=== PATIENT | female | born 1995 | race Caucasian/White ===

== ENCOUNTER 2018-05-26 19:21 | Emergency (ER) | payer OTHER, SELFPAY ==
[2018-05-26 19:21] VITALS: BP 115/77; PULSE 96; RESP 16; TEMP 36.4; O2SAT 100; BMI 24.1
--- NOTE | 2018-05-26 19:35 | ED.VISSUMM ---
- ER Visit Summary Date of Service: 05/26/18 Chief Complaint: Abdominal pain History of Present Illness: The patient is a 22 F presenting with abdominal pain. This has been ongoing for the past 4 days. Pain is intermittent. It is worse with eating. She has nausea with no vomiting. She has had mild diarrhea, denies urinary complaints. She denies vaginal bleeding. She is currently 5 weeks . . Denies chest pain or shortness of breath. Denies other complaints. Physical Examination: Vitals are stable. Patient is afebrile. Alert no acute distress. HEENT exam is unremarkable. Neck is supple. Lungs are clear and equal bilaterally. Heart is regular rate and rhythm. Abdomen is soft mild epigastric tenderness with no rebound or guarding. Extremities are unremarkable. Skin is warm and dry. Remainder of exam is unremarkable. Emergency Department Course and Treatment: Patient was given IV fluids, Zofran. CBC, chemistries unremarkable. Liver lipase are normal. Patient is given a GI cocktail with improvement. She is advised to follow-up with her [employer]. Advised return to ED for worsening complaints. Disposition: Discharge home Impression: Epigastric pain This note was generated with [employer] dictation software. It may contain incorrect words, spelling, and punctuation that were not noted in review of the chart prior to signing ED Disposition - Plan for ED Patient: Chief Complaint: Abd Pain Instructions: ED Abdominal Pain Unkn Cause Referrals: Clarisse Hyde MD [STAFF PHYSICIAN] -
[2018-05-26] MEDS: Ondansetron 4 MG/2 ML Vial IV (20:00)
[2018-05-26] MEDS: 0.9% Normal Saline 1,000 ML 1000 ML IV (20:00)
[2018-05-26 20:03] LABS: Absolute Lymphocyte Count 1.84 X10^3/ul (0.83-4.51); Absolute Neutrophil Count 6.3 X10^3/uL (2.0-7.7); Basophil# 0.02 X10^3/uL; Basophil% 0.2 % (0-1); Eosinophil# 0.11 X10^3/uL; Eosinophils% 1.2 % (0-5); Hematocrit 39.3 % (37-47); Hemoglobin 13.2 g/dl (12.0-15.0); Lymphocyte # 1.84 X10^3/ul (4.0); Lymphocyte % 20.6 % (19-41); Mean Corp Hgb Conc 33.6 g/gl (32-36); Mean Corpuscular Hgb 29.1 pg (27.0-32.0); Mean Corpuscular Volume 86.8 fL (81-99); Monocyte# 0.63 X10^3/uL; Monocyte% 7.1 % (0-10); Neutrophil # 6.32 X10^3/uL (2.7-7.7); Neutrophil % 70.8 % (47-70); POSITIVE COUNT NO; POSITIVE DIFFERENTIAL NO; POSITIVE MORPHOLOGY NO; Platelet Count 196 K/mm3 (150-450); RBC Distribution Width CV 12.6 % (11.6-14.6); RBC Distribution Width SD 40.2 fl (35.1-43.9); Red Blood Count 4.53 M/mm3 (4.2-5.4); White Blood Count 8.9 K/mm3 (4.4-11.0)
[2018-05-26 20:17] LABS: AST(SGOT) 12 U/L (15-37); Alanine Aminotransfer ALT/SGPT 20 U/L (13-56); Albumin, Serum 3.8 g/dL (3.2-5.0); Alkaline Phosphatase 69 U/L (45-117); Anion Gap 8 (5-15); BUN 5 mg/dL (7-18); BUN/Creat Ratio 10.7 RATIO (10-20); Bilirubin, Direct 0.09 mg/dL (0.00-0.30); Calcium,Total 8.6 mg/dL (8.5-10.1); Chloride 106 mmol/L (98-107); Creatinine, Serum 0.47 mg/dL (0.55-1.02); EST Glomerular Filtration Rate 177 mL/min (>60); Est Glom Filt Rate - Afr Amer 214 mL/min (>60); Estimated Creatinine Clearance 156.63 ml/min; Globulin 3.7 g/dL (2.2-4.2); Glucose 80 mg/dL (74-106); Lipase 86 U/L (73-393); Potassium 3.6 mmol/L (3.5-5.1); Protein, Total 7.5 g/dL (6.4-8.2); Sodium Level 137 mmol/L (136-145)
[2018-05-26] MEDS: Mag Hydrox/Al Hydrox/Simeth 30 ML UDC PO (20:43)
--- NOTE | 2018-05-26 21:45 | ED.DEP ---
ED Disposition - Plan for ED Patient: Chief Complaint: Abd Pain Instructions: ED Abdominal Pain Unkn Cause Referrals: Clarisse Hyde MD [STAFF PHYSICIAN] -
[2018-05-26 21:56] VITALS: BP 112/69; PULSE 81; RESP 16; O2SAT 99
== END 2018-05-26 21:57 | disposition home or self-care (01) ==
PROVIDERS: Emergency Provider Emergency Medicine
DX: O26.891 Other specified pregnancy related conditions, first trimester (principal); R10.13 Epigastric pain; Z3A.01 Less than 8 weeks gestation of pregnancy
CPT/HCPCS: 80048; 80076; 83690; 85025; 96361; 96374; 99284; J7030; J2405

== ENCOUNTER 2018-05-30 14:03 | Emergency (ER) | payer OTHER, SELFPAY ==
[2018-05-30 14:04] VITALS: BP 117/71; PULSE 106; RESP 16; TEMP 36.1; O2SAT 100; BMI 23.7
[2018-05-30 14:44] LABS: Absolute Lymphocyte Count 1.45 X10^3/ul (0.83-4.51); Absolute Neutrophil Count 7.2 X10^3/uL (2.0-7.7); Basophil# 0.02 X10^3/uL; Basophil% 0.2 % (0-1); Eosinophil# 0.06 X10^3/uL; Eosinophils% 0.6 % (0-5); Hematocrit 43.2 % (37-47); Hemoglobin 14.6 g/dl (12.0-15.0); Lymphocyte # 1.45 X10^3/ul (4.0); Lymphocyte % 15.4 % (19-41); Mean Corp Hgb Conc 33.8 g/gl (32-36); Mean Corpuscular Hgb 29.5 pg (27.0-32.0); Mean Corpuscular Volume 87.3 fL (81-99); Mean Platelet Vol. 10.4 fl (6.2-12.0); Monocyte# 0.64 X10^3/uL; Monocyte% 6.8 % (0-10); Neutrophil % 76.8 % (47-70); POSITIVE COUNT NO; POSITIVE DIFFERENTIAL NO; POSITIVE MORPHOLOGY NO; Platelet Count 217 K/mm3 (150-450); RBC Distribution Width CV 12.6 % (11.6-14.6); RBC Distribution Width SD 40.6 fl (35.1-43.9); Red Blood Count 4.95 M/mm3 (4.2-5.4); White Blood Count 9.4 K/mm3 (4.4-11.0)
[2018-05-30 15:06] LABS: Anion Gap 8 (5-15); BUN 7 mg/dL (7-18); BUN/Creat Ratio 11.1 RATIO (10-20); Chloride 103 mmol/L (98-107); Creatinine, Serum 0.63 mg/dL (0.55-1.02); EST Glomerular Filtration Rate 126 mL/min (>60); Est Glom Filt Rate - Afr Amer 152 mL/min (>60); Estimated Creatinine Clearance 116.85 ml/min; Glucose 76 mg/dL (74-106); Sodium Level 135 mmol/L (136-145)
[2018-05-30 15:07] LABS: Red Blood Cells-Urine 0 SEEN /hpf (0-5)
[2018-05-30 15:12] LABS: Color, Urine Yellow (Yellow); Glucose, Dipstick Normal (Normal); Leukocyte Esterase-Dipstick 25 /ul (Negative); Nitrite-Dipstick Negative (Negative); Occult Blood-Urine Negative /ul (Negative); Protein-Dipstick 15 mg/dl (Negative); Urine Bilirubin Dipstick Negative (Negative); Urine Clarity Sl. Cloudy (Clear); Urine Urobilinogen Normal (Normal)
[2018-05-30 15:14] LABS: Ketone-Dipstick 150 mg/dl (Negative)
[2018-05-30 15:17] LABS: Bacteria 1+ /hpf (None Seen); Mucous, Urine 1+ /hpf (<or=2+); Squamous Epithelial Cells - UA 0-5 SEEN /hpf (5-10); White Blood Cells 0-5 SEEN /hpf (0-5)
--- NOTE | 2018-05-30 15:52 | ED.RN ---
POS PREG CALLED FROM THE LAB. DR SALAS AWARE
[2018-05-30 15:53] LABS: Pregnancy, Serum, hCG Quali. POSITIVE Negative (0-9 Nonpreg)
[2018-05-30 16:17] VITALS: BP 96/70; PULSE 90; RESP 14; O2SAT 100
--- NOTE | 2018-05-30 16:19 | ED.VISSUMM ---
- ER Visit Summary Date of Service: 05/30/18 Chief Complaint: Abdominal pain History of Present Illness: The patient is a 22 F who presents with abdominal pain that has been getting worse over the past few weeks. Patient states the pain is worse over the epigastric area. Patient states the pain is aching and cramping. Patient admits to some nausea and one episode of vomiting. She states the emesis was stomach contents. Patient states she has been having some diarrhea as well. Patient denies any melena or hematochezia. Patient denies any dysuria hematuria. Patient states she is approximately 6 weeks and her last menstrual period was at the beginning of April. Physical Examination: Vital signs are stable. Patient is afebrile. Patient is in no acute distress. Oral mucosa is pink and moist. Neck is supple. Trachea is midline. There is no JVD noted. Heart was regular rate and rhythm. Lungs are clear and equal bilateral. Abdomen is soft. Bowel sounds are normal. There is mild diffuse tenderness. There is no guarding noted. Skin is warm dry. Cranial nerves II through XII are intact. There are no focal motor or sensory deficits noted. The remaining physical exam is within normal limits. Test Results: CBC, metabolic profile, and urinalysis were obtained and were all normal. HCG was positive. Quantitative hCG and pelvic ultrasound were ordered. Emergency Department Course and Treatment: Patient was given IV fluids. Patient was given Zofran. Patient was turned over to the oncoming physician pending ultrasound results. Patient was given a prescription for Zofran. Disposition: [] Impression: 1. Abdominal pain 2. This note was generated with [employer] dictation software. It may contain incorrect words, spelling, and punctuation that were not noted in review of the chart prior to signing <Vitaly Cramer - Last Filed: 05/30/18 16:46> - ER Visit Summary Ultrasound returned showing single live intrauterine at 7 weeks and 1 day with good heart tones. Small subchorionic hemorrhage which I discussed with the patient. She is having no symptoms of a threatened at this time she states that the epigastric discomfort is worse within minutes of eating. She has had no hematemesis or melena or bright red blood per rectum. It stays epigastric, it does not radiate to her back or her right upper quadrant. I do not think she has biliary colic. I recommend taking an H2 kash twice daily until she follows up, she is given a prescription for ranitidine in addition to the Zofran that was already written. She is comfortable with this plan. This note was generated with [employer] dictation software. It may contain incorrect words, spelling, and punctuation that were not noted in review of the chart prior to signing <Stephon Hargrove - Last Filed: 05/30/18 18:01> ED Disposition <Vitaly Cramer - Last Filed: 05/30/18 16:46> <Stephon Hargrove - Last Filed: 05/30/18 18:01> - Plan for ED Patient: Disposition: Home or Assisted Living Chief Complaint: Abd Pain Instructions: ED Abdominal Pain Unkn Cause Prescriptions: Ondansetron [Zofran Odt] 4 mg PO Q8H PRN PRN #10 tab PRN Reason: Nausea Ranitidine [Zantac] 150 mg PO BID #60 tab Referrals: Care Physician,No Primary [Primary Care Provider] - Clarisse Hyde MD [STAFF PHYSICIAN] - 5-7 Days
--- NOTE | 2018-05-30 16:21 | US_ITS ---
STUDY: FIRST TRIMESTER OBSTETRICAL ULTRASOUND REASON FOR EXAM: Female, 22 years old. Abdominal pain after eating with nausea and vomiting. . LMP: 04/15/2018 TECHNIQUE: Transvaginal PRIOR ULTRASOUND: None. FINDINGS: Single live intrauterine gestation, cardiac rate 117 bpm. Mean sac diameter 2.1 cm correlating with 7 week 1 day gestation. Yolk sac 3.7 mm. Saticoy-rump length 4 mm, correlating with 6 week 1 day gestation. AUA 6 week 5 day, NITHYA (AUA) 01/18/2019. GA (LMP) 6 week 3 day. Uterus measures 9.3 x 6.7 x 4.4 cm, normal myometrial echotexture, closed cervix. The right ovary measures 29 x 15 x 13 mm, normal echotexture and flow, no suspicious features of the right ovary or right adnexa. The left ovary measures 41 x 34 x 32 mm and contains a simple cyst measuring 24 x 22 x 25 mm, normal vascular flow, no suspicious adnexal lesion. No adnexal or cul-de-sac free fluid. Heterogeneous anechoic focus adjacent to the gestational sac measuring 8 x 6 x 4 mm, consistent with small subchorionic hemorrhage. US/Transvaginal w/Preg US IMPRESSION: Small subchorionic hemorrhage. Single live intrauterine gestation. Left ovarian simple appearing cyst with a maximum dimension of 25 mm, most likely representing a corpus luteal cyst of . Measurements on today's study are concordant with expected dates based on last menses within 2 days. Electronically Signed: Greg Hall MD at 17:20 EST Tel , Service support ,
[2018-05-30] MEDS: Ondansetron 4 MG/2 ML Vial IV (16:31)
[2018-05-30] MEDS: 0.9% Normal Saline 1,000 ML 1000 ML IV (16:31)
[2018-05-30 18:11] VITALS: BP 103/71; PULSE 90; RESP 16; O2SAT 100
--- OUTSIDE RECORDS SUMMARY | 2018-08-04 14:58 | XMS RPT_ITS ---
:1995 Author Organization [facility] Care Team Providers Name Role Phone Annamaria Sow Attending Unavailable Primay Care Physicia, No Primary Care Unavailable Primay Care Physicia, No Primary Care Unavailable Vitaly Cramer Attending Unavailable Clarisse Hyde Attending Unavailable PROBLEMS PROBLEMS No Problem Records FoundPROCEDURES PROCEDURES No Procedure Records FoundRESULTS RESULTS EMERGENCY DEPARTMENT Observed: 06/06/2018 Status: F Source: [place] SUMMARY 12:47 AM [facility] REPOSIT[facility] Medical Records Department [address] [place] [address] Emergency Department Summary 05/30/18 1619 MR#: [id number] Acct: [id number] Name: MELVA MARTINS Rep #: [id number] : 1995 22 From: Vitaly Cramer DO PCP: Care Physician, No Primary Status: DEP ER - ER Visit Summary Date of Service: 05/30/18 Chief Complaint: Abdominal pain History of Present Illness: The patient is a 22 F who presents with abdominal pain that has been getting worse over the past few weeks. Patient states the pain is worse over the epigastric area. Patient states the pain is aching and cramping. Patient admits to some nausea and one episode of vomiting. She states the emesis was stomach contents. Patient states she has been having some diarrhea as well. Patient denies any melena or hematochezia. Patient denies any dysuria hematuria. Patient states she is approximately 6 weeks and her last menstrual period was at the beginning of April. Physical Examination: Vital signs are stable. Patient is afebrile. Patient is in no acute distress. Oral mucosa is pink and moist. Neck is supple. Trachea is midline. There is no JVD noted. Heart was regular rate and rhythm. Lungs are clear and equal bilateral. Abdomen is soft. Bowel sounds are normal. There is mild diffuse tenderness. There is no guarding noted. Skin is warm dry. Cranial nerves II through XII are intact. There are no focal motor or sensory deficits noted. The remaining physical exam is within normal limits. Test Results: CBC, metabolic profile, and urinalysis were obtained and were all normal. HCG was positive. Quantitative hCG and pelvic ultrasound were ordered. Emergency Department Course and Treatment: Patient was given IV fluids. Patient was given Zofran. Patient was turned over to the oncoming physician pending ultrasound results. Patient was given a prescription for Zofran. Disposition: [] Impression: 1. Abdominal pain 2. This note was generated with ACE*COMMation software. It may contain incorrect words, spelling, and punctuation that were not noted in review of the chart prior to signing <Vitaly Cramer - Last Filed: 05/30/18 16:46> - ER Visit Summary Ultrasound returned showing single live intrauterine at 7 weeks and 1 day with good heart tones. Small subchorionic hemorrhage which I discussed with the patient. She is having no symptoms of a threatened at this time she states that the epigastric discomfort is worse within minutes of eating. She has had no hematemesis or melena or bright red blood per rectum. It stays epigastric, it does not radiate to her back or her right upper quadrant. I do not think she has biliary colic. I recommend taking an H2 kash twice daily until she follows up, she is given a prescription for ranitidine in addition to the Zofran that was already written. She is comfortable with this plan. This note was generated with HELM [employer]s software. It may contain incorrect words, spelling, and punctuation that were not noted in review of the chart prior to signing <Stephon Hargrove - Last Filed: 05/30/18 18:01> ED Disposition <Vitaly Cramer - Last Filed: 05/30/18 16:46> <Stephon Hargrove - Last Filed: 05/30/18 18:01> - Plan for ED Patient: Disposition: Home or Assisted Living Chief Complaint: Abd Pain Instructions: ED Abdominal Pain Unkn Cause Prescriptions: Ondansetron [Zofran Odt] 4 mg PO Q8H PRN PRN #10 tab PRN Reason: Nausea Ranitidine [Zantac] 150 mg PO BID #60 tab Referrals: Care Physician,No Primary [Primary Care Provider] - Clarisse Hyde MD [STAFF PHYSICIAN] - 5-7 Days What to do if you have Problems For any increased pain, shortness of breath, bleeding, nausea or vomiting, chest pain, or any unexpected problems, contact your Primary Care Provider. Call [facility] ([phone]) or report to the closest Emergency Room. Call 911 if necessary. 06/06/18 0047 <Electronically signed by Vitaly Cramer DO> Date Vitaly Cramer DO 05/30/18 180<Electronically signed by Stephon Hargrove MD> Cosigner Signature (If Indicated): Date Stephon Hargrove MD CC: No Primary Care Physician TRANSVAGINAL W/PREG US Observed: 05/30/2018 Status: F Source: [place] 4:22 PM [facility] REPOSIT[facility] Imaging Services [address] [place] [address] Transvaginal w/Preg US MR#: [id number] Acct: [id number] Name: MELVA MARTINS Rep #: [id number] : 1995 F 22 From: Greg Hall MD PCP: Care Physician, No Primary Status: REG ER Study: Transvaginal w/Preg US Date of Exam: 05/30/18 Exam# [id number] Ordering Dr: Vitaly Cramer DO STUDY: FIRST TRIMESTER OBSTETRICAL ULTRASOUND REASON FOR EXAM: Female, 22 years old. Abdominal pain after eating with nausea and vomiting. . LMP: 04/15/2018 TECHNIQUE: Transvaginal PRIOR ULTRASOUND: None. FINDINGS: Single live intrauterine gestation, cardiac rate 117 bpm. Mean sac diameter 2.1 cm correlating with 7 week 1 day gestation. Yolk sac 3.7 mm. [place] [employer]-rump length 4 mm, correlating with 6 week 1 day gestation. AUA 6 week 5 day, NITHYA (AUA) 01/18/2019. GA (LMP) 6 week 3 day. Uterus measures 9.3 x 6.7 x 4.4 cm, normal myometrial echotexture, closed cervix. The right ovary measures 29 x 15 x 13 mm, normal echotexture and flow, no suspicious features of the right ovary or right adnexa. The left ovary measures 41 x 34 x 32 mm and contains a simple cyst measuring 24 x 22 x 25 mm, normal vascular flow, no suspicious adnexal lesion. No adnexal or cul-de-sac free fluid. Heterogeneous anechoic focus adjacent to the gestational sac measuring 8 x 6 x 4 mm, consistent with small subchorionic hemorrhage. US/Transvaginal w/Preg US IMPRESSION: Small subchorionic hemorrhage. Single live intrauterine gestation. Left ovarian simple appearing cyst with a maximum dimension of 25 mm, most likely representing a corpus luteal cyst of . Measurements on today's study are concordant with expected dates based on last menses within 2 days. Electronically Signed: Greg Hall MD at 17:20 EST Tel , Service support , CC: No Primary Care Physician; Vitaly Cramer DO Spool Sorter: Signed URINALYSIS, COMPLETE Collected: 05/30/2018 Status: F Source: [place] 3:03 PM [facility] REPOSITORY Order Comment: How was Urine Obtained? CLEAN CATCH TYPE CODE TESTS RESULT OUT OF RANGE REFERENCE UNITS LAB L400.3000 Yellow COLOR Normal Yellow LAB L400.3050 Clear Normal CLARITY Sl. Cloudy LAB L400.3200 Normal mg/dl Normal GLUCOSE, UR Normal LAB L400.3300 Negative mg/dL Normal BILIRUBIN URINE Negative LAB L400.3400 Negative mg/dl High KETONE UR 150 Result Comment: CRITICAL VALUE *H CRITICAL VALUE VERIFIED. CALLED TO KAREN SPICER 05/30/18 1514 Abilio Lima. RESULTS READ BACK BY SAME. LAB L400.3465 1.002-1.030 Normal SP.GR. DIPSTX 1.020 LAB L400.3550 5.0 - 8.0 pH Normal UR 6.0 LAB L400.3600 Negative mg/dl High 15 PROT DIPSTX LAB L400.3700 Normal mg/dl Normal UROBILI Normal LAB L400.3750 Negative Normal NITRITE UR Negative LAB L400.3780 Negative /ul Normal OCCULT Negative BLOOD-UR LAB L400.3800 Negative /ul High 25 LEUK ESTERASE LAB L400.4050 0-5 /hpf Normal WBC 0-5 SEEN LAB L400.4100 0-5 /hpf 0 Normal RBC-UA SEEN LAB L400.4150 5-10 /hpf Normal SQUAM EPI 0-5 SEEN LAB L400.4300 None Seen /hpf 1+ Normal BACTERIA LAB L400.4350 <or=2+ /hpf 1+ Normal MUCUS, URINE Performed By: #### L400.0001 #### [facility] [address] [place], [address] CBC W/DIFF, AUTOMATED Collected: 05/30/2018 Status: F Source: [place] 2:30 PM [facility] REPOS[facility] TYPE CODE TESTS RESULT OUT OF RANGE REFERENCE UNITS LAB L100.1000 4.4-11.0 K/mm3 Normal WBC 9.4 LAB L100.1200 4.2-5.4 M/mm3 Normal RBC 4.95 LAB L100.1300 12.0-15.0 g/dl Normal HGB 14.6 LAB L100.1400 37-47 % Normal HCT 43.2 LAB L100.1500 81-99 fL Normal MCV 87.3 LAB L100.1600 27.0-32.0 pg Normal MCH 29.5 LAB L100.1700 32-36 g/gl Normal MCHC 33.8 LAB L100.1810 11.6-14.6 % Normal RDW CV 12.6 LAB L100.1820 35.1-43.9 fl Normal RDW SD 40.6 LAB L100.1900 150-450 K/mm3 Normal PLT 217 LAB L100.2000 6.2-12.0 fl Normal MPV 10.4 LAB L100.2100 47-70 % High NEUT% 76.8 LAB L100.2200 19-41 % Low LY% 15.4 LAB L100.2300 0-10 % Normal MONO% 6.8 LAB L100.2400 0-5 % Normal EO% 0.6 LAB L100.2500 0-1 % Normal BASO% 0.2 LAB L100.2550 0.0-0.9 % Normal IM GRAN % 0.200 Result Comment: IG% - Immature Granulocytes (promyelocytes, myelocytes and metamyelocytes) > 1% indicates that a LEFT SHIFT is Present. LAB L100.2620 2.0-7.7 X10 3/uL Normal Absolute Neut 7.2 LAB L100.2720 0.83-4.51 X10 3/ul Normal Absolute Lymph 1.45 Performed By: #### L100.0100, L700.6800 #### [facility] [address] [place], [place], [id number] ,SERUM,HCG QUALI. Collected: Status: F Source: [place] 05/30/2018 2:30 PM [facility] RE[facility] TYPE CODE TESTS RESULT OUT OF REFERENCE UNITS RANGE LAB L700.7000 0-9 Nonpreg Negative High HCGSQUAL POSITIVE Result Comment: TEST is *POSITIVE* LAB L700.6700 =>Qualitative mIU/mL Normal HCG Qual triggr 59331 Performed By: #### L100.0100, L700.6800 #### [facility] [address] [place], [place], [id number] BASIC METABOLIC Collected: 05/30/2018 Status: F Source: [place] PROFILE (BMP) 2:30 PM [facility] REPOS[facility] TYPE CODE TESTS RESULT OUT OF RANGE REFERENCE UNITS LAB L501.0100 74-106 mg/dL Normal GLU 76 Result Comment: Please note revised GLUCOSE reference range effective 2017. LAB L501.1000 7-18 mg/dL Normal BUN 7 LAB L501.1100 0.55-1.02 mg/dL Normal CREAT,SERUM 0.63 Result Comment: The validity of the calculated GFR AND GFRAA in patients over 70 years has not been determined. Clinical correlation is essential. LAB L501.1110 >60 mL/min Normal EST GFR 126 Result Comment: Non- GFR Calc LAB L501.1115 >60 mL/min Normal EST GFR - AA 152 Result Comment: GFR Calc LAB L501.1255 ml/min Normal Estimated CRCL 116.85 LAB L501.1300 10-20 RATIO BUN/CRE Normal 11.1 LAB L501.2200 8.5-10 mg/dL .1 CA Normal 9.0 LAB L501.5300 136-14 mmol/L Low 5 NA 135 LAB L501.5600 3.5-5. mmol/L 1 K Normal 4.0 LAB L501.5900 98-107 mmol/L CL Normal 103 LAB L501.6100 21.0-3 mmol/L 2.0 CO2 Normal 24.0 LAB L501.6200 5-15 GAP Normal 8 Performed By: #### L500.2500 #### [facility] [address] [place], [address] HCG TITER QUANT., Collected: 05/30/2018 Status: F Source: [place] SERUM 2:30 PM [facility] REPOS[facility] TYPE CODE TESTS RESULT OUT OF RANGE REFERENCE UNITS LAB L700.8000 <9 non-preg mIU/mL High HCG 35151 QUANT. Performed By: #### L700.8000 #### [facility] [address] [place], [address] EMERGENCY DEPARTMENT Observed: 05/26/2018 Status: F Source: [place] SUMMARY 9:48 PM [facility] REPOSITORY [facility] Medical Records Department [address] [place] [address] Emergency Department Summary 05/26/18 1935 MR#: [id number] Acct: [id number] Name: MELVA MARTINS Rep #: [id number] : 1995 22 From: Annamaria Sow MD PCP: Care Physician, No Primary Status: REG ER - ER Visit Summary Date of Service: 05/26/18 Chief Complaint: Abdominal pain History of Present Illness: The patient is a 22 F presenting with abdominal pain. This has been ongoing for the past 4 days. Pain is intermittent. It is worse with eating. She has nausea with no vomiting. She has had mild diarrhea, denies urinary complaints. She denies vaginal bleeding. She is currently 5 weeks . . Denies chest pain or shortness of breath. Denies other complaints. Physical Examination: Vitals are stable. Patient is afebrile. Alert no acute distress. HEENT exam is unremarkable. Neck is supple. Lungs are clear and equal bilaterally. Heart is regular rate and rhythm. Abdomen is soft mild epigastric tenderness with no rebound or guarding. Extremities are unremarkable. Skin is warm and dry. Remainder of exam is unremarkable. Emergency Department Course and Treatment: Patient was given IV fluids, Zofran. CBC, chemistries unremarkable. Liver lipase are normal. Patient is given a GI cocktail with improvement. She is advised to follow-up with her TELEVISION NEWS PRODUCER. Advised return to ED for worsening complaints. Disposition: Discharge home Impression: Epigastric pain This note was generated with Wakie/Budist dictation software. It may contain incorrect words, spelling, and punctuation that were not noted in review of the chart prior to signing ED Disposition - Plan for ED Patient: Chief Complaint: Abd Pain Instructions: ED Abdominal Pain Unkn Cause Referrals: Clarisse Hyde MD [STAFF PHYSICIAN] - What to do if you have Problems For any increased pain, shortness of breath, bleeding, nausea or vomiting, chest pain, or any unexpected problems, contact your Primary Care Provider. Call [employer] [facility] ([phone]) or report to the closest Emergency Room. Call 911 if necessary. 05/26/18 2148 <Electronically signed by Annamaria Sow MD> Date Annamaria Sow MD Cosigner Signature (If Indicated): Date CC: No Primary Care Physician DISCHARGE INSTRUCTION Observed: 05/26/2018 Status: F Source: [place] 9:45 PM [facility] RE[facility] Medical Records Department [address] [place] [address] Discharge Instruction 05/26/182144 MR#: [id number] Acct: [id number] Name: MELVA MARTINS Rep #: [id number] : 1995 22 From: Annamaria Sow MD PCP: Care Physician, No Primary Status: REG ER ED Disposition - Plan for ED Patient: Chief Complaint: Abd Pain Instructions: ED Abdominal Pain Unkn Cause Referrals: Clarisse Hyde MD [STAFF PHYSICIAN] - What to do if you have Problems For any increased pain, shortness of breath, bleeding, nausea or vomiting, chest pain, or any unexpected problems, contact your Primary Care Provider. Call [facility] ([phone]) or report to the closest Emergency Room. Call 911 if necessary. 05/26/182144 <Electronically signed by Annamaria Sow MD> Date Annamaria Sow MD Cosigner Signature (If Indicated): Date CC: No Primary Care Physician CBC W/DIFF, AUTOMATED Collected: 05/26/2018 Status: F Source: [place] 7:50 PM [facility] REPOS[facility] TYPE CODE TESTS RESULT OUT OF RANGE REFERENCE UNITS LAB L100.1000 4.4-11.0 K/mm3 Normal WBC 8.9 LAB L100.1200 4.2-5.4 M/mm3 Normal RBC 4.53 LAB L100.1300 12.0-15.0 g/dl Normal HGB 13.2 LAB L100.1400 37-47 % Normal HCT 39.3 LAB L100.1500 81-99 fL Normal MCV 86.8 LAB L100.1600 27.0-32.0 pg Normal MCH 29.1 LAB L100.1700 32-36 g/gl Normal MCHC 33.6 LAB L100.1810 11.6-14.6 % Normal RDW CV 12.6 LAB L100.1820 35.1-43.9 fl Normal RDW SD 40.2 LAB L100.1900 150-450 K/mm3 Normal PLT 196 LAB L100.2000 6.2-12.0 fl Normal MPV 10.0 LAB L100.2100 47-70 % High NEUT% 70.8 LAB L100.2200 19-41 % Normal LY% 20.6 LAB L100.2300 0-10 % Normal MONO% 7.1 LAB L100.2400 0-5 % Normal EO% 1.2 LAB L100.2500 0-1 % Normal BASO% 0.2 LAB L100.2550 0.0-0.9 % Normal IM GRAN % 0.100 Result Comment: IG% - Immature Granulocytes (promyelocytes, myelocytes and metamyelocytes) > 1% indicates that a LEFT SHIFT is Present. LAB L100.2620 2.0-7.7 X10 3/uL Normal Absolute Neut 6.3 LAB L100.2720 0.83-4.51 X10 3/ul Normal Absolute Lymph 1.84 Performed By: #### L100.0100 #### [facility] [address] [place], [place], [address] BASIC METABOLIC Collected: 05/26/2018 Status: F Source: [place] PROFILE (BMP) 7:50 PM [facility] REPOS[facility] TYPE CODE TESTS RESULT OUT OF RANGE REFERENCE UNITS LAB L501.0100 74-106 mg/dL Normal GLU 80 Result Comment: Please note revised GLUCOSE reference range effective 2017. LAB L501.1000 7-18 mg/dL Low BUN 5 LAB L501.1100 0.55-1.02 mg/dL Low CREAT,SERUM 0.47 Result Comment: The validity of the calculated GFR AND GFRAA in patients over 70 years has not been determined. Clinical correlation is essential. LAB L501.1110 >60 mL/min Normal EST GFR 177 Result Comment: Non- GFR Calc LAB L501.1115 >60 mL/min Normal EST GFR - AA 214 Result Comment: GFR Calc LAB L501.1255 ml/min Normal Estimated CRCL 156.63 LAB L501.1300 10-20 RATIO BUN/CRE Normal 10.7 LAB L501.2200 8.5-10 mg/dL .1 CA Normal 8.6 LAB L501.5300 136-14 mmol/L 5 NA Normal 137 LAB L501.5600 3.5-5. mmol/L 1 K Normal 3.6 LAB L501.5900 98-107 mmol/L CL Normal 106 LAB L501.6100 21.0-3 mmol/L 2.0 CO2 Normal 23.0 LAB L501.6200 5-15 GAP Normal 8 Performed By: #### L500.2500, L500.3400, L501.2450 #### [facility] [address] [facility] [place], [place], [id number] LIVER PROFILE Collected: 05/26/2018 Status: F Source: [place] 7:50 PM [facility] REPOS[facility] TYPE CODE TESTS RESULT OUT OF RANGE REFERENCE UNITS LAB L501.1500 6.4-8.2 g/dL Normal T PROT 7.5 LAB L501.1800 3.2-5.0 g/dL Normal ALB 3.8 LAB L501.1950 2.2-4.2 g/dL Normal GLOB 3.7 LAB L501.4100 15-37 U/L Low AST 12 LAB L501.4305 45-117 U/L Normal ALK P 69 LAB L501.4405 13-56 U/L Normal ALT 20 LAB L501.4600 0.20-1.00 mg/dL Normal T BILI 0.40 LAB L501.4700 0.00-0.30 mg/dL Normal D BILI 0.09 Performed By: #### L500.2500, L500.3400, L501.2450 #### [facility] [address] [place], [place], [id number] LIPASE Collected: 05/26/2018 Status: F Source: [place] 7:50 PM [facility] TYPE CODE TESTS RESULT OUT OF RANGE REFERENCE UNITS LAB L501.2450 73-393 U/L Normal LIPASE 86 Performed By: #### L500.2500, L500.3400, L501.2450 #### [facility] [address] [place], [address] PROGRESS Observed: 04/12/2018 Status: COMPLETED Source: [place] 10:09 AM [facility] REPOSITORY HNO ID: [id number] Author: Jose A Eckert Service: (none) Author Type: Physician Type: Progress Notes Filed: 04/12/2018 10:21 AM Note Text: Patient presents with: Acute Visit: missed period HPI: Presents for missed menstrual cycle. She reports her cycle was due to start 2 weeks ago. LMP 02/26/2018. 4 home tests were negative. She is sexually active with her , attempting to get . Her cycles are usually regular once a month. Denies abdominal or abnormal symptoms. PAST MEDICAL HISTORY Diagnosis Date - NEGATIVE MEDICAL HISTORY PAST SURGICAL HISTORY Procedure Laterality Date - NONE MEDICATIONS: vitamin No prescriptions on file. ALLERGIES: ALLERGIES No Known Allergies VITALS: BP 100/80 Pulse 70 Temp 36.6 ?C (97.9 ?F) (Left Tympanic) Resp 16 Wt 64 kg (141 lb) LMP 02/26/2018 PHYSICAL EXAM: GEN: pleasant, no acute distress, alert HEENT: PERRL, EOMI, MMM NECK: supple, no lymphadenopathy, no thyromegaly HEART: regular rate, regular rhythm, no murmurs LUNGS: clear to auscultation, no wheezes or crackles, no increased WOB ABD: soft, non-distended, no masses palpated, non-tender EXT: no clubbing, no cyanosis, no edema ASSESSMENT/PLAN: 1. Missed menses - ICD9: 626.4, ICD10: N92.6 - HCG QUAL UR B/O - negative. Informed she is unlikely to be . Continue vitamin. Follow up with ELECTRIC METER TESTER HELPER if she continues to have menstrual irregularity. Jose A Eckert MD CNOV Observed: 04/12/2018 Status: COMPLETED Source: [place] 10:00 AM [facility] REPOSITORY Office Visit (UCWSTR) MELVA MARTINS ([id number]) 1995 F Date Time Provider Department 04/12/18 10:00 AM JOSE A ECKERTWSTR During your visit today, we recorded the following information about you: Temperature Pulse Respiration Blood pressure 97.9 degrees 70/minute 16/minute 100/80 Weight Last Period 64 kg 02/26/18 Jose A Eckert MD 04/12/2018 10:21 AM Signed Patient presents with: Acute Visit: missed period HPI: Presents for missed menstrual cycle. She reports her cycle was due to start 2 weeks ago. LMP 02/26/2018. 4 home tests were negative. She is sexually active with her , attempting to get . Her cycles are usually regular once a month. Denies abdominal or abnormal symptoms. PAST MEDICAL HISTORY Diagnosis Date - NEGATIVE MEDICAL HISTORY PAST SURGICAL HISTORY Procedure Laterality Date - NONE MEDICATIONS: vitamin No prescriptions on file. ALLERGIES: ALLERGIES No Known Allergies VITALS: BP 100/80 Pulse 70 Temp 36.6 ?C (97.9 ?F) (Left Tympanic) Resp 16 Wt 64 kg (141 lb) LMP 02/26/2018 PHYSICAL EXAM: GEN: pleasant, no acute distress, alert HEENT: PERRL, EOMI, MMM NECK: supple, no lymphadenopathy, no thyromegaly HEART: regular rate, regular rhythm, no murmurs LUNGS: clear to auscultation, no wheezes or crackles, no increased WOB ABD: soft, non-distended, no masses palpated, non-tender EXT: no clubbing, no cyanosis, no edema ASSESSMENT/PLAN: 1. Missed menses - ICD9: 626.4, ICD10: N92.6 - HCG QUAL UR B/O - negative. Informed she is unlikely to be . Continue vitamin. Follow up with ELECTRIC METER TESTER HELPER if she continues to have menstrual irregularity. Jose A Eckert MD Referring Provider: SELF [200] Allergies As of Date: 04/12/2018 (No Known Allergies) Date Reviewed: 04/12/2018 Reviewed by: Sabrina Fritz Ma - Fully Assessed Reason for Visit: Acute Visit [896] Cmt: missed period Primary Visit Diagnosis:Missed menses [N92.6] Order(s):HCG QUAL UR B/O [2804753] Order #: [id number] Problem List As Of Date: 04/12/2018 (None) Encounter Status:Closed by JOSE A ECKERT MD on 04/12/18 TELEVISION NEWS PRODUCER OFFICE VISIT Observed: 08/06/2017 Status: F Source: [place] REPORT 10:05 PM [facility] RE[facility]IT[facility] [address] [place] [address] OFFICE VISIT Date of Service: 08/04/17 MR#: [id number] Acct: [id number] Name: MELVA MARTINS Rep #: [id number] : 1995 Provider: Clarisse Hyde MD Age/Sex: 21/F [place] [facility] [place]: S[place] Intake Vital Signs08/04/17 Height 5 ft 3 in 08/04/17 Weight: 135 lb 8 oz 08/04/17 Body Mass Index (BMI) 24.0 08/04/17 Blood Pressure 121/78 Intake Visit Reasons: NEXPLANON REMOVAL Chief Complaint: Nexplanon Removal Dowel Pin Man Required: No Is patient in pain?: No Allergies No Known Allergies Allergy (Unverified 08/04/17 11:00) Medications NK [NK] 08/04/17 [History Confirmed 08/04/17] Is last menstrual period known: No Post menopausal: No Patient : No : No PFSH PFSH Family History Mother Hypertension Father Hypertension Social History Smoking Status: Never smoker alcohol intake: never substance use type: does not use caffeine: No what type of physical activity do you participate in: walking seatbelt use: always do you feel safe at home: Yes additional social history: [employer] Patient works at [employer] History 0 Elective abortions Hx Para Spontaneous abortions HPI NEXPLANON REMOVAL: Details: MELVA MARTINS is a 21 year old who presents for nexplanon removal Office Procedures Nexplanon Removal Nexplanon Removal Consent Signed: Yes Details: Sign in Communication: Completed Sign out Discussion: Completed Technique: Patient place din supine position with left arm bent at the elbow and placed of the head. Skin cleansed with betadine. 1 mL of 1% lidocaine with epi injected subQ along insertion site. Scalpel used to make a 5mm stab incision superficially at distal end of nexplanon. Device removed under sterile technique with a small hemostat. Sterile pressure dressing applied. Assessment AND Plan Problems 1. Nexplanon removal Z30.46 Plan nexplanon removed, patient declines use of another control at this time. proceed with condoms. Orders Orders: Coding Level of Care Code No Charge Diagnoses Nexplanon removal Z30.46 Additional Codes Nexplanon Removal (39591) 08/06/17 2205 <Electronically signed by Clarisse Hyde MD> Date Clarisse Hyde MD Cosigner Signature: Date (if applicable) CC: ALLERGIES ALLERGIES DATE TYPE / CODE NAME / CODE REACTION SEVERITY SOURCE 05/30/2018 Drug No Known Unknown [facility] Allergy/4160 Allergies/F00 [facility] 26697(SNOMED [id number](RXNOR Repository CT) M) ENCOUNTERS ENCOUNTERS ADMIT/DISCHARGE ACCOUNT ADMITTING ENCOUNTER LOCATION SOURCE NUMBER CLASS 05/30/2018/05/30/19 [id number] Emergency [address] ing:ED Repository 05/26/2018/05/26/19 [id number] Emergency [address] ing:ED Repository 04/12/2018/04/13/20 [id number] Ambulatory [address] Repository 08/04/2017/08/05/19 [id number] Ambulatory BMSBuilding:B [address] Repository PAYERS PAYERS ENCOUNTER GUARANTOR PAYER SUBSCRIBER SOURCE 05/30/2018 MELVA CABALLERO: Maria Luz [id number] Insurance:MUTUAL [id number] EHPPolicy Number: [place] [id number] [id number]: ([phone]) Date:[id number] [phone] () [id number], [place] [address]NV: 05/30/2018 Secondary NOT GIVENUNK Maria Luz Insurance:SELF PAY [facility] Number: Effective Repository Date:2018-05-30 05/26/2018 MELVA DELGADOB: Maria Luz [id number] Insurance:MUTUAL [id number] EHPPolicy Number: Repository [place], [place] [id number]: [phone]) Date:[id number] [phone] () [id number], [place] [address]IC: 05/26/2018 Secondary NOT GIVENUNK Maria Luz Insurance:SELF PAY [facility] Number: Effective Repository Date:2018-05-26 08/04/2017 MELVA DELGADOB: Maria Luz [id number] Insurance:MUTUAL [id number] [address]Cbr: EHPPolicy Number: Repository [id number] () Date:[id number] [address]VHRWSTB, [place] [address]XD: 08/04/2017 Secondary NOT GIVENUNK Datto Insurance:SELF PAY [facility] Number: Effective Repository Date:2017-07-10
== END 2018-05-30 18:29 | disposition home or self-care (01) ==
PROVIDERS: Emergency Provider Emergency Medicine
DX: O26.891 Other specified pregnancy related conditions, first trimester (principal); R10.9 Unspecified abdominal pain; Z3A.01 Less than 8 weeks gestation of pregnancy
CPT/HCPCS: 76817; 80048; 81001; 84702; 84703; 85025; 96361; 96374; 99283; J7030; A4216; J2405

== ENCOUNTER → 2018-06-13 13:25 | Outpatient (CLI) | payer OTHER, SELFPAY ==
[2018-05-30 14:04] VITALS: BMI 23.7
[2018-06-13 13:51] VITALS: BP 107/78; PULSE 97; RESP 16; TEMP 36.9; O2SAT 97
[2018-06-13] MEDS: Dextrose 5%-Lactated Ringers 1,000 ML 999 ML IV (14:02)
[2018-06-13] MEDS: Ondansetron 4 MG/2 ML Vial IV (14:02)
[2018-06-13] MEDS: proMETHazine 25 MG/ML Syringe 12.5 MG IV (15:22)
== END ==
PROVIDERS: Visit Provider Nurse Practitioner Women's Health
DX: E86.0 Dehydration (principal)
CPT/HCPCS: 96361; 96374; 96375; A4216; J2405

== ENCOUNTER → 2018-06-19 15:33 | Outpatient (CLI) | payer OTHER, SELFPAY ==
[2018-05-30 14:04] VITALS: BMI 23.7
[2018-06-19 15:37] VITALS: BP 115/79; PULSE 93; RESP 16; TEMP 36.6; O2SAT 99; BMI 23.7
[2018-06-19] MEDS: Ondansetron 4 MG/2 ML Vial IV (15:51)
[2018-06-19] MEDS: Dextrose 5%-Lactated Ringers 1,000 ML 999 ML IV (15:52)
[2018-06-19] MEDS: proMETHazine 25 MG/ML Syringe 12.5 MG IV (16:32)
== END ==
PROVIDERS: Visit Provider Nurse Practitioner Women's Health
DX: E86.0 Dehydration (principal)
CPT/HCPCS: 96361; 96374; 96375; A4216; J2405

== ENCOUNTER → 2018-06-20 09:18 | Outpatient (CLI) | payer OTHER, SELFPAY ==
[2018-06-20 09:16] VITALS: BMI 23.7
[2018-06-20 09:47] LABS: Absolute Lymphocyte Count 1.06 X10^3/ul (0.83-4.51); Absolute Neutrophil Count 3.9 X10^3/uL (2.0-7.7); Basophil# 0.01 X10^3/uL; Basophil% 0.2 % (0-1); Eosinophil# 0.06 X10^3/uL; Eosinophils% 1.1 % (0-5); Lymphocyte # 1.06 X10^3/ul (4.0); Mean Corp Hgb Conc 33.3 g/gl (32-36); Mean Corpuscular Hgb 28.8 pg (27.0-32.0); Mean Corpuscular Volume 86.3 fL (81-99); Mean Platelet Vol. 10.4 fl (6.2-12.0); Monocyte% 8.9 % (0-10); Neutrophil # 3.94 X10^3/uL (2.7-7.7); Neutrophil % 70.4 % (47-70); Platelet Count 164 K/mm3 (150-450); RBC Distribution Width CV 12.5 % (11.6-14.6); RBC Distribution Width SD 39.3 fl (35.1-43.9); Red Blood Count 4.17 M/mm3 (4.2-5.4); White Blood Count 5.6 K/mm3 (4.4-11.0)
[2018-06-20 09:48] LABS: POSITIVE COUNT NO; POSITIVE DIFFERENTIAL NO; POSITIVE MORPHOLOGY NO
[2018-06-20 11:08] LABS: HIV - WCH Non-Reactive (Nonreactive); Rubella IgG 114.2 IU/mL
[2018-06-20 18:34] LABS: Chlamydia Trachomatis by PCR Negative (Negative); Neisserai gonorrhoeae by PCR Negative (Negative); Probe Check PASS; Sample Adequacy Control PASS; Specimen Processing Control PASS
[2018-06-21 23:34] LABS: Rapid Plasmin Reagin (RPR) NONREACTIVE (NONREACTIVE)
[2018-06-22 15:35] LABS: HPV Reflexed? NOT INDICATED
[2018-06-22 18:14] LABS: HEPATITIS B SURFACE AG Negative (Negative)
== END ==
PROVIDERS: Referring Provider Obstetrics & Gynecology; Visit Provider Obstetrics & Gynecology
DX: Z12.4 Encounter for screening for malignant neoplasm of cervix (principal); Z34.81 Encounter for supervision of other normal pregnancy, first trimester; Z31.430 Encounter of female for testing for genetic disease carrier status for procreative management
CPT/HCPCS: 36415; 85025; 86592; 86703; 86762; 86850; 86900; 87086; 87340; 87491; 87591; 87624; 88175; G0145

== ENCOUNTER 2018-07-10 16:46 | Emergency (ER) | payer OTHER, SELFPAY ==
[2018-06-20 09:16] VITALS: BMI 23.7
[2018-07-10 16:47] VITALS: BP 108/68; PULSE 102; RESP 16; TEMP 36.3; O2SAT 100; BMI 21.9
[2018-07-10] MEDS: 0.9% Normal Saline 1,000 ML 1000 ML IV (17:51)
[2018-07-10] MEDS: Ondansetron 4 MG/2 ML Vial IV (17:51)
[2018-07-10 18:09] LABS: Color, Urine Yellow (Yellow); Glucose, Dipstick Normal (Normal); Leukocyte Esterase-Dipstick 100 /ul (Negative); Nitrite-Dipstick Negative (Negative); Occult Blood-Urine Negative /ul (Negative); Protein-Dipstick 15 mg/dl (Negative); Specific Gravity, Urine 1.025 (1.002-1.030); Urine Bilirubin Dipstick Negative (Negative); Urine Clarity Clear (Clear); Urine Urobilinogen Normal (Normal)
[2018-07-10 18:17] LABS: Ketone-Dipstick 150 mg/dl (Negative); Squamous Epithelial Cells - UA 0-5 SEEN /hpf (5-10)
[2018-07-10 18:18] LABS: Bacteria 1+ /hpf (None Seen); Mucous, Urine 2+ /hpf (<or=2+); Red Blood Cells-Urine 0 SEEN /hpf (0-5); White Blood Cells 0-5 SEEN /hpf (0-5)
--- NOTE | 2018-07-10 18:44 | ED.VISSUMM ---
- ER Visit Summary Date of Service: 07/10/18 Chief Complaint: Nausea and vomiting History of Present Illness: The patient is a 22 F Ab0 female who is 12 weeks gestation presents with increased vomiting. She has had problems with vomiting throughout the . Her salesperson shoes is Dr. Clarisse Hyde. She reports thirst, dry mouth. She denies orthostatic symptoms. She has had decreased urine output. She is required IV hydration. She states she vomits 1 to twice a day. Today she vomited 5-10 times. She has had no diarrhea. She denies fever, chills night sweats. She denies ocular, visual auditory symptoms. She denies cardiac respiratory symptoms. She denies any urologic symptoms. Please read written note for complete detail. Physical Examination: Vital signs noted and she is slightly tachycardic. HEENT exam is marked with dry mucosa. Heart is regular and rapid without murmur, gallop or rub her lungs are clear to auscultation. Abdomen is soft and nontender. There is no CVA tenderness noted. There is no dermatologic lesions noted. There is no focal neurologic findings. Test Results: UA is remarkable for ketones. There is no evidence of infection. Emergency Department Course and Treatment: IV was established she received 1 L of normal saline and 4 mg of Zofran IV push. UA was obtained. Treatment Plan: Prescription for Zofran follow-up with her salesperson shoes Disposition: Discharge in stable improved condition Impression: -induced vomiting Mild dehydration with ketosis This note was generated with [employer] dictation software. It may contain incorrect words, spelling, and punctuation that were not noted in review of the chart prior to signing ED Disposition - Plan for ED Patient: Disposition: Home or Assisted Living Instructions: ED Preg Morning Sickness Prescriptions: Ondansetron [Zofran Odt] 4 mg PO Q8H PRN PRN #20 tablet PRN Reason: Nausea Referrals: Care Physician,No Primary [Primary Care Provider] - Clarisse Hyde MD [STAFF PHYSICIAN] - 3-5 Days if not improving Additional Instructions: Your prescription was electronically transmitted to [facility] pharmacy located on [address] your designated pharmacy of choice.
--- NOTE | 2018-07-10 18:48 | ED.DCSUM_ITS ---
- ER Visit Summary Date of Service: 07/10/18 Chief Complaint: Nausea and vomiting History of Present Illness: The patient is a 22 F Ab0 female who is 12 weeks gestation presents with increased vomiting. She has had problems with vomiting throughout the . Her product support specialist is Dr. Clarisse Hyde. She reports thirst, dry mouth. She denies orthostatic symptoms. She has had decreased urine output. She is required IV hydration. She states she vomits 1 to twice a day. Today she vomited 5-10 times. She has had no diarrhea. She denies fever, chills night sweats. She denies ocular, visual auditory symptoms. She denies cardiac respiratory symptoms. She denies any urologic symptoms. Please read written note for complete detail. Physical Examination: Vital signs noted and she is slightly tachycardic. HEENT exam is marked with dry mucosa. Heart is regular and rapid without murmur, gallop or rub her lungs are clear to auscultation. Abdomen is soft and nontender. There is no CVA tenderness noted. There is no dermatologic lesions noted. There is no focal neurologic findings. Test Results: UA is remarkable for ketones. There is no evidence of infection. Emergency Department Course and Treatment: IV was established she received 1 L of normal saline and 4 mg of Zofran IV push. UA was obtained. Treatment Plan: Prescription for Zofran follow-up with her product support specialist Disposition: Discharge in stable improved condition Impression: -induced vomiting Mild dehydration with ketosis This note was generated with [employer] dictation software. It may contain incorrect words, spelling, and punctuation that were not noted in review of the chart prior to signing ED Disposition - Plan for ED Patient: Disposition: Home or Assisted Living Instructions: ED Preg Morning Sickness Prescriptions: Ondansetron [Zofran Odt] 4 mg PO Q8H PRN PRN #20 tablet PRN Reason: Nausea Referrals: Care Physician,No Primary [Primary Care Provider] - Clarisse Hyde MD [STAFF PHYSICIAN] - 3-5 Days if not improving Additional Instructions: Your prescription was electronically transmitted to [facility] pharmacy located on [address] your designated pharmacy of choice.
[2018-07-10 19:00] VITALS: PULSE 87; RESP 14; O2SAT 99
== END 2018-07-10 19:02 | disposition home or self-care (01) ==
PROVIDERS: Emergency Provider Emergency Medicine
DX: O21.9 Vomiting of pregnancy, unspecified (principal); Z3A.12 12 weeks gestation of pregnancy; E86.0 Dehydration; E88.89 Other specified metabolic disorders
CPT/HCPCS: 81001; 99283; J7030; J2405

== ENCOUNTER → 2018-07-19 13:45 | Outpatient (CLI) | payer OTHER, SELFPAY ==
[2018-07-18 11:42] VITALS: BMI 22.1
[2018-07-19] MEDS: Dextrose 5%-Lactated Ringers 1,000 ML 999 ML IV (14:06)
[2018-07-19] MEDS: Ondansetron 4 MG/2 ML Vial IV (14:06)
[2018-07-19 14:09] VITALS: BP 99/64; PULSE 87; RESP 16; TEMP 36.6; O2SAT 99
[2018-07-19] MEDS: proMETHazine 25 MG/ML Syringe 12.5 MG IV (15:15)
== END ==
PROVIDERS: Visit Provider Nurse Practitioner Women's Health
DX: E86.0 Dehydration (principal)
CPT/HCPCS: 96361; 96374; 96375; A4216; J2405

== ENCOUNTER → 2018-08-28 13:12 | Outpatient (CLI) | payer OTHER, SELFPAY ==
[2018-08-20 10:16] VITALS: BMI 22.1
--- NOTE | 2018-08-28 13:15 | US_ITS ---
STUDY: SECOND AND THIRD TRIMESTER OBSTETRICAL ULTRASOUND REASON FOR EXAM: Female, 23 years old. Routine survey. LMP: April 15, 2018. TECHNIQUE: Transabdominal TECHNICAL QUALITY: Adequate. PRIOR ULTRASOUND: Comparison is made with prior examination dated May 30, 2018. FINDINGS: There is a single intrauterine fetus. The fetus is in a cephalic presentation. There is demonstrated cardiac activity with a heart rate of 149 bpm. There is a normal amniotic fluid volume. The largest amniotic fluid pocket measures 3.6 x 3.4 cm. The amniotic fluid index (LAYNE) is normal. The placenta is anterior in location and is not low lying. There are Grade 0 placental changes. The cervix measures 3.8 cm in length. The bilateral adnexal regions are normal. BIOMETRY: BPD: 4.6 cm: 20 weeks, 0 days HC: 17.21 cm: 19 weeks, 6 days AC: 13.9 cm: 19 weeks, 3 days FL: 2.86 cm: 18 weeks, 6 days CI: 79% FL/BPD: 62% FL/HC: FL/AC: 21% HC/AC: 1.24 age by current US: 19 weeks, 4 days. NITHYA by current US: January 18, 2019. Estimated weight: 277 grams, +/- 40 grams, 38 %. age by prior US: 19 weeks, 4 days. NITHYA by prior US: January 18, 2019. Age by LMP: 19 weeks, 2 days. NITHYA by LMP: January 20, 2019. ANATOMY: Gender: Male Cranium: Normal lateral ventricles. Normal choroid plexus. Normal cerebellum. Normal cisterna magna. Normal face, nose and lips. Chest: Normal 4-chamber heart. Abdomen/Pelvis: Normal diaphragm. Unable to visualize the stomach during the examination. Normal abdominal wall. Normal cord insertion. Normal 3 vessel cord. Normal kidneys. Normal bladder. Spine: Unable to get the anterior spinal views due to the position. Extremities: Normal bilateral upper extremities. Normal bilateral lower extremities. US/OB Anatomy Scan IMPRESSION: Single live intrauterine gestation with a mean gestational age of 19 weeks and 4 days. The measurements obtained today. The normal expected range. Follow-up abdominal examination is recommended for better visualization of the stomach and the spine. Electronically Signed: Fabio Centeno, at 14:38 EDT , Service support ,
== END ==
PROVIDERS: Referring Provider Obstetrics & Gynecology; Visit Provider Obstetrics & Gynecology
DX: Z34.92 Encounter for supervision of normal pregnancy, unspecified, second trimester (principal); Z3A.19 19 weeks gestation of pregnancy
CPT/HCPCS: 76805

== ENCOUNTER → 2018-09-06 07:56 | Outpatient (CLI) | payer OTHER, SELFPAY ==
[2018-08-20 10:16] VITALS: BMI 22.1
--- NOTE | 2018-09-06 07:57 | US_ITS ---
STUDY: SECOND AND THIRD TRIMESTER OBSTETRICAL ULTRASOUND - LIMITED REASON FOR EXAM: Female, 23 years old. Follow-up anatomy. LMP: 04/15/2019 PRIOR ULTRASOUND: 08/28/2018 TECHNIQUE: Transabdominal TECHNICAL QUALITY: Adequate. FINDINGS: There is a single intrauterine fetus. The fetus is in a cephalic presentation. There is demonstrated cardiac activity with a heart rate of 132 bpm. There is a normal amniotic fluid volume. The largest amniotic fluid pocket measures 2.4 cm. The placenta is anterior in location and is not low lying. There are Grade 0 placental changes. The cervix measures 4.4 cm in length. No biometrics performed. On the previous study, the stomach, and entire spine were not well visualized. On today's exam, all are visualized and are sonographically normal. Age by LMP: 20 weeks, 4 days. NITHYA by LMP: 01/20/2019. age by prior US: 20 weeks, 6 days. NITHYA by prior US: 01/18/2019. US/OB Limited (No Biometrics) IMPRESSION: Single live intrauterine , stomach and entire spine are sonographically normal on current exam. Electronically Signed: Robert Haywood MD at 10:26 EDT , Service support ,
== END ==
PROVIDERS: Referring Provider Obstetrics & Gynecology; Visit Provider Obstetrics & Gynecology
DX: Z34.90 Encounter for supervision of normal pregnancy, unspecified, unspecified trimester (principal)
CPT/HCPCS: 76815

== ENCOUNTER → 2018-10-17 | Outpatient (CLI) | payer OTHER, SELFPAY ==
[2018-10-17 15:19] VITALS: BMI 22.1
[2018-10-17 17:51] LABS: Absolute Neutrophil Count 6.5 X10^3/uL (2.0-7.7); Eosinophil# 0.09 X10^3/uL; Eosinophils% 1.1 % (0-5); Hematocrit 32.4 % (37-47); Hemoglobin 10.9 g/dl (12.0-15.0); Lymphocyte % 15.4 % (19-41); Mean Corp Hgb Conc 33.6 g/gl (32-36); Mean Corpuscular Hgb 30.9 pg (27.0-32.0); Mean Corpuscular Volume 91.8 fL (81-99); Monocyte# 0.52 X10^3/uL; Monocyte% 6.2 % (0-10); Neutrophil # 6.47 X10^3/uL (2.7-7.7); Neutrophil % 76.7 % (47-70); Platelet Count 160 K/mm3 (150-450); RBC Distribution Width CV 13.5 % (11.6-14.6); Red Blood Count 3.53 M/mm3 (4.2-5.4); White Blood Count 8.4 K/mm3 (4.4-11.0)
[2018-10-17 17:58] LABS: POSITIVE COUNT NO; POSITIVE DIFFERENTIAL NO; POSITIVE MORPHOLOGY NO
[2018-10-17 18:06] LABS: Glucose Challenge Gest 1H 50g 160 mg/dL (70-140)
== END | disposition home or self-care (01) ==
LOC: LAB 15:31
PROVIDERS: Nurse Practitioner Women's Health; Referring Provider Obstetrics & Gynecology; Visit Provider Obstetrics & Gynecology
DX: Z34.90 Encounter for supervision of normal pregnancy, unspecified, unspecified trimester (principal)
CPT/HCPCS: 36415; 82950; 85025

== ENCOUNTER → 2018-10-22 06:36 | Outpatient (CLI) | payer OTHER, SELFPAY ==
[2018-10-17 15:19] VITALS: BMI 22.1
[2018-10-22 07:39] LABS: Glucose GTT-Gestation. Fasting 77 mg/dL (<105)
[2018-10-22 08:17] LABS: Glucose GTT-Gestational 1 Hr 117 mg/dL (<190)
[2018-10-22 10:29] LABS: Glucose GTT-Gestational 3 Hr 53 L (<145)
[2018-10-22 10:31] LABS: Glucose GTT-Gestational 2 Hr 97 mg/dL (<165)
== END ==
PROVIDERS: Referring Provider Obstetrics & Gynecology; Visit Provider Obstetrics & Gynecology
DX: O99.810 Abnormal glucose complicating pregnancy (principal); Z3A.00 Weeks of gestation of pregnancy not specified
CPT/HCPCS: 36415; 82951; 82952

== ENCOUNTER → 2019-01-04 16:47 | Outpatient (CLI) | payer BC, OTHER, SELFPAY ==
[2019-01-04 14:58] VITALS: BMI 24.8
== END ==
PROVIDERS: Referring Provider Obstetrics & Gynecology; Visit Provider Obstetrics & Gynecology
DX: Z34.90 Encounter for supervision of normal pregnancy, unspecified, unspecified trimester (principal)
CPT/HCPCS: 87081

== ENCOUNTER → 2019-01-10 12:01 | Outpatient (CLI) | payer BC, OTHER, SELFPAY ==
[2019-01-09 14:53] VITALS: BMI 24.8
--- NOTE | 2019-01-10 12:04 | US_ITS ---
STUDY: SECOND AND THIRD TRIMESTER OBSTETRICAL ULTRASOUND - LIMITED REASON FOR EXAM: Female, 23 years old. Evaluate growth LMP: Unknown. PRIOR ULTRASOUND: Prior study of 08/28/2018 TECHNIQUE: Transabdominal TECHNICAL QUALITY: Adequate. FINDINGS: There is a single intrauterine fetus. The fetus is in a cephalic presentation. There is demonstrated cardiac activity with a heart rate of 153 bpm. There is decreased amniotic fluid volume consistent with oligohydramnios. The largest amniotic fluid pocket measures 2.3 x 4.6 cm. The amniotic fluid index (LAYNE) is 5.9 cm. The placenta is anterior in location and is not low lying. There are Grade 3 placental changes. The cervix was not visualized. BIOMETRY: BPD: 9.24 cm: 37 weeks, 4 days HC: 33.15 cm: 37 weeks, 6 days AC: 31.44 cm: 35 weeks, 3 days FL: 7.32 cm: 37 weeks, 4 days Age by LMP: 38 weeks, 4 days. NITHYA by LMP: 01/20/2019. age by prior ultrasound: 19 weeks 4 days. NITHYA by prior ultrasound 01/18/2019 age by current US: 37 weeks, 1 days. NITHYA by current US: 01/30/2019. Estimated weight: 2933 grams, +/- 428 grams, 16 percentile. US/OB Limited With Biometrics IMPRESSION: Single viable intrauterine of approximately 37 weeks 1 day gestational age by current ultrasonographic measurement. weight percentile is low, measuring 16%. A heart rate of 153 bpm is noted. Electronically Signed: Gil Polanco MD at 17:28 EDT , Service support ,
== END ==
PROVIDERS: Referring Provider Obstetrics & Gynecology; Visit Provider Obstetrics & Gynecology
DX: O36.5930 Maternal care for other known or suspected poor fetal growth, third trimester, not applicable or unspecified (principal); Z3A.37 37 weeks gestation of pregnancy
CPT/HCPCS: 76816

== ENCOUNTER 2019-01-12 07:30 | Outpatient (CLI) | payer BC, OTHER, SELFPAY ==
[2019-01-09 14:53] VITALS: BMI 24.8
[2019-01-12 07:45] VITALS: BMI 27.0
--- NOTE | 2019-01-12 22:33 | OB.TRI.PN ---
Progress Notes Date of Service: 01/12/19 Progress Note: Patient presented for follow-up due to borderline low amniotic fluid on previous ultrasound. Repeat bedside LAYNE today was 10 cm. heart tone 120 moderate variability reactive no decelerations category 1 tracing [place]: Irregular contractions Assessment and plan borderline low amniotic fluid?repeat value within normal limits reassuring testing DC home kick counts follow-up next week [facility] Codes - Urinary/Genital Urinary/Genital CPT Codes: 94756-40 non-stress test Interp
== END 2019-01-12 08:20 | disposition home or self-care (01) ==
LOC: WPOUT 07:43 → WP 07:44
PROVIDERS: Referring Provider Obstetrics & Gynecology; Visit Provider Obstetrics & Gynecology
DX: Z36.89 Encounter for other specified antenatal screening (principal)
CPT/HCPCS: 59025; 59050; 76815; 99218; G0378

== ENCOUNTER 2019-01-16 10:30 | Inpatient (IN) | payer OTHER, BC, SELFPAY ==
[2019-01-16 09:49] VITALS: BMI 27.3
[2019-01-16 10:25] LABS: ROM Internal Control Test YES-OK TO RESULT pt. (Internal QC)
[2019-01-16 10:26] LABS: ROM Patient Test POSITIVE (Negative)
--- NOTE | 2019-01-16 10:35 | HP.PCM_ITS ---
- Problem List (1) SROM (spontaneous rupture of membranes) Status: Acute (2) Anemia affecting Status: Acute Qualifiers: Comment: FE added to PNV (3) Abnormal glucose affecting Status: Acute Comment: nl 3hr GTT (4) Status: Acute Qualifiers: Comment: negative carrier screening, declines genetic and ntd screening. anatomy us normal. (5) Supervision of normal Status: Acute Qualifiers: Comment: PRR NITHYA 01/20/19 boy Musa boyfriend Ellis History Date of Admission: 01/16/19 Final NITHYA: 01/20/19 Gestational age: 39 Weeks and 3 Days History of this : This is a 23 year-old, G1, P0, at 39 weeks gestational age presents in active labor with spontaneous rupture membranes clear fluid this morning at 9 AM. Patient has had a complicated by mild anemia and borderline low amniotic fluid. Upon initial presentation there was some minimal variability and after IV fluids she had good recovery. Allergies No Known Allergies Allergy (Verified 01/12/19 07:47) Home Medications: Home Medications vitamin#30 30 mg iron-10 mg iron-folic acid 1 mg-omg3 capsule 1 cap PO QHS cap 06/20/18 Smoking Status: Never smoker Alcohol: None Number of Fetus(es): 1 NST - FHR Rate Baby A Baseline: 150 Variability:: Minimal, Moderate Accelerations:: 15 x 15 Decelerations:: Variable - isolated periodic, resolved with position changes NST Reactive:: Yes FHR Category:: Category II Uterine Activity:: Q. 2-5 History Past Pregnancies: Past Pregnancies Delivery Date Name GA/Weeks Outcome Route Weight Infant Gender Labor Length Anesthesia Delivery Location Provider FOB Labs: Mom's Problem List Problem Status Onset Code SROM (spontaneous rupture of membranes) Acute Mom's Labs & Results 01/16/19 01/16/19 01/16/19 10:00 11:00 11:00 WBC 9.8 RBC 4.00 L Hgb 12.4 Hct 37.1 MCV 92.8 MCH 31.0 MCHC 33.4 RDW Std Deviation 45.1 H RDW Coeff of Juan 13.3 Plt Count 157 MPV 10.9 Immature Gran % (Auto) 0.900 Neut % (Auto) 74.2 H Lymph % (Auto) 18.1 L Sullivan % (Auto) 5.8 Eos % (Auto) 0.7 Baso % (Auto) 0.3 Absolute Neuts (auto) 7.2 Absolute Lymphs (auto) 1.77 Nucleated RBC % 0 Vag Amniotic Fld Detect POSITIVE H Blood Type O POSITIVE Antibody Screen NEGATIVE Course Did the patient receive Yes care? Labs HIV/AIDS Non-Reactive Current Obstetrical History Gestational Diabetes No Incompetent Cervix No Infertility No IUGR No Macrosomia No Hypertension/Pre-eclampsia No Placenta Previa/Abruption No PTL/PROM No Uterine anomaly No Oligohydramnios No Polyhydramnios No Multiple gestation No Past Medical History Asthma No Diabetes No Hypertension No Heart disease No Mitral valve prolapse No Neurologic/Seizure disorder/ No Migraines Kidney disease No Liver disease No Varicosities No Clotting disorders/Hx of DVT No Thyroid Dysfunction No Other medical diseases No Psychiatric disorders No Major trauma No Abnormal PAP smear No Sleep apnea No Mammogram in the last 2 years No Social History Marital Status: Alleged father Ellis Hx Smoking No Smoking Status Never smoker Expected Infant Delivery Method: Spontaneous Vaginal Review of Systems Constitutional: Denies: Fever, Malaise Eyes: Denies: Blurred vision, Vision Change HEENT: Denies: Head Aches, Visual Changes Cardiovascular: Denies: Chest Pain, Palpitations Respiratory: Denies: Cough, Shortness of Breath, Wheezing Gastrointestinal: Denies: Abdominal Pain, Diarrhea, Nausea, Vomiting Genitourinary: Denies: Dysuria, Hematuria Gynecological: Reports: Vaginal discharge. Denies: Vaginal bleeding Musculoskeletal: Denies: Joint Pain, Muscle pain Skin: Denies: Lesions, Rash Neurological: Denies: Blurred vision, Focal weakness, Headaches Psychiatric: Denies: Anxiety, Depression Endocrine: Denies: Heat/ Cold Intolerance Hematologic/ Lymphatic: Denies: Easy Bruising, Easy Bleeding Physical Exam General: Alert, Cooperative, No apparent distress HEENT: Atraumatic, Normocephalic. Negative for: Thyromegaly, Lymphadenopathy Cardiovascular: Regular rate Lungs: Normal air movement Abdomen: Soft, Non Tender, Gravid Neurological: Deep Tendon Reflexes 2+/4 and Symmetrical, Neuro grossly intact. 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 Negative for: Vulvar lesions Estimated gestational size: Small for gestational age Presentation: Cephalic Cervix Dilation (cm): 3.5 Station: -2 Effacement (%): 60 Assessment/Plan All Active Problems (Last Reviewed 01/09/19 @ 14:52 by Vannesa Covington) SROM (spontaneous rupture of membranes) (Acute) Anemia affecting (Acute) Abnormal glucose affecting (Acute) (Acute) Supervision of normal (Acute) This is a 23 year-old, at 39 weeks gestational age with spontaneous rupture membranes Patient presents IAL, plan expectant management for , pitocin PRN if needed. Pain management: Plans epidural. GBS negative. Management of any complications: None I have reviewed the [facility] and made any clinically relevant updates.
[2019-01-16 11:33] LABS: Absolute Lymphocyte Count 1.77 X10^3/uL (0.83-4.51); Absolute Neutrophil Count 7.2 X10^3/uL (2.0-7.7); Basophil# 0.03 X10^3/uL; Basophil% 0.3 % (0-1); Eosinophil# 0.07 X10^3/uL; Eosinophils% 0.7 % (0-5); Hematocrit 37.1 % (37-47); Hemoglobin 12.4 g/dL (12.0-15.0); Lymphocyte # 1.77 X10^3/ul (4.0); Lymphocyte % 18.1 % (19-41); Mean Corp Hgb Conc 33.4 g/dL (32-36); Mean Corpuscular Volume 92.8 fL (81-99); Mean Platelet Vol. 10.9 fl (6.2-12.0); Monocyte# 0.57 X10^3/uL; Monocyte% 5.8 % (0-10); NRBC Flagged by Analyzer 0 % (0-5); Neutrophil # 7.24 X10^3/uL (2.7-7.7); Neutrophil % 74.2 % (47-70); Platelet Count 157 K/mm3 (150-450); RBC Distribution Width CV 13.3 % (11.6-14.6); RBC Distribution Width SD 45.1 fl (35.1-43.9); White Blood Count 9.8 K/mm3 (4.4-11.0)
[2019-01-16] MEDS: Lactated Ringers 500 ML 999 ML IV ×2 (11:34→18:40)
[2019-01-16] MEDS: Lactated Ringers 1,000 ML 50 ML IV (12:35)
[2019-01-16] MEDS: Amnioinfusion- 0.9% NS 1,000 ML IV.SOLN. 500 ML INTRA-UTER (13:48)
[2019-01-16] MEDS: Oxytocin 30 units/NS 500 ml 30 UNITS/500 ML IV.SOLN IV (15:39)
[2019-01-16] MEDS: fentaNYL-bupivacaine (epidural) 100 ML BAG EPIDURAL (17:20)
[2019-01-16] MEDS: Lactated Ringers 1,000 ML 200 ML IV (22:08)
[2019-01-16] MEDS: Amnioinfusion- 0.9% NS 1,000 ML IV.SOLN. INTRA-UTER (22:24)
[2019-01-16] MEDS: Oxytocin 30 units/NS 500 ml 30 UNITS/500 ML IV.SOLN 334 UNITS IV (23:56)
--- NOTE | 2019-01-17 00:18 | PCM.OPRPT ---
Problem List (1) SROM (spontaneous rupture of membranes) Status: Acute (2) Anemia affecting Status: Acute Qualifiers: Comment: FE added to PNV (3) Abnormal glucose affecting Status: Acute Comment: nl 3hr GTT (4) Status: Acute Qualifiers: Comment: negative carrier screening, declines genetic and ntd screening. anatomy us normal. (5) Supervision of normal Status: Acute Qualifiers: Comment: PRR NITHYA 01/20/19 boy Musa boyfriend Ellis Vaginal Delivery Maternal Presentation: Active Labor, Spontaneous Rupture of Membranes 23-year-old G1, P0 at 39 weeks presents with spontaneous rupture membranes Method of Induction: Pitocin Amniotic Membrane Rupture Type: Spontaneous at home Amniotic Fluid Description: Clear Final NITHYA: 01/20/19 Gestational age: 39 Weeks and 4 Days Date of Procedure: 01/17/19 Pre-Operative Diagnosis: srom Post-Operative Diagnosis: same Surgery/ Procedure Performed: Spontaneous Vaginal Delivery Type of Anesthesia: Epidural Description of Procedure: Patient began pushing and delivered the head in the KATHERIN presentation. The head was delivered atraumatically and a loose nuchal cord ?1 was identified and easily reduced over the infant's head. The anterior and posterior shoulders delivered without complication followed by the rest of the infant and the was placed on the maternal abdomen. Delayed cord clamping was employed for approximately 60 seconds. Cord was clamped and cut and gentle traction was applied to the cord and the placenta delivered spontaneously immediately following it was noted to be intact with three-vessel cord. The perineum and vagina were inspected and noted to have a first-degree perineal laceration that was repaired in the usual fashion with 3-0 Vicryl repeat. EBL was 200 cc. Patient and infant tolerated delivery well. Presentation: KATHERIN Placental Delivery Description: Spontaneous Placenta Disposition: [facility] Cord Vessel Description: 3 Vessels Nuchal Cord Compression: With compression Cord Entanglement: Around neck x 1, loose Estimated Blood Loss: 200 Infant A gender: Male Episiotomy Description: None Laceration: Perineal Extension/lac, 1st degree Medications given after delivery: IV Pitocin Complications: None
[2019-01-17 04:01] VITALS: BP 107/59; PULSE 123; RESP 16; TEMP 37.2
[2019-01-17] MEDS: Naproxen 250 MG Tablet 500 MG PO ×2 (07:39→15:28)
--- NOTE | 2019-01-17 07:51 | PN.OBGYN_ITS ---
Patient Problems: Active and Suspected Problems (Last Reviewed 01/09/19 @ 14:52 by Vannesa Covington) SROM (spontaneous rupture of membranes) (Acute) Subjective: doing well no complaints pain controlled no CP SOB N V ambulating well tolerating po lochia moderate, going well - Physical Exam General: Alert, Oriented x3 Abdomen: Soft, Non Tender, Non-Distended, - - FF below U Vital Signs Temp Pulse Resp BP 98.9 F 123 H 16 107/59 L 01/17/19 04:01 01/17/19 04:01 01/17/19 04:01 01/17/19 04:01 Oxygen Delivery Method Room Air Weight: 154 lb Body Mass Index (BMI) 27.3 Intake and Output for Last 24 Hours 01/15/19 01/16/19 01/17/19 23:59 23:59 23:59 Intake Total 2736.96 / 2736.96 500 / 500 Output Total 700 / 700 350 / 350 Balance 2036.96 / 2036.96 150 / 150 Laboratory Tests Past 24 Hrs 01/16/19 01/16/19 01/16/19 10:00 11:00 11:00 WBC 9.8 RBC 4.00 L Hgb 12.4 Hct 37.1 MCV 92.8 MCH 31.0 MCHC 33.4 RDW Std Deviation 45.1 H RDW Coeff of Juan 13.3 Plt Count 157 MPV 10.9 Immature Gran % (Auto) 0.900 Neut % (Auto) 74.2 H Lymph % (Auto) 18.1 L [place] % (Auto) 5.8 Eos % (Auto) 0.7 Baso % (Auto) 0.3 Absolute Neuts (auto) 7.2 Absolute Lymphs (auto) 1.77 Nucleated RBC % 0 Vag Amniotic Fld Detect POSITIVE H Blood Type O POSITIVE Antibody Screen NEGATIVE Medical Necessity - Tobacco Use Smoking Status: Never smoker Assessment/Plan All Active Problems (Last Reviewed 01/09/19 @ 14:52 by Vannesa Covington) SROM (spontaneous rupture of membranes) (Acute) Anemia affecting (Acute) Abnormal glucose affecting (Acute) (Acute) Supervision of normal (Acute) s/p PPD # 1 1. routine post delivery care 2. breast feeding- support given 3. rh positive 4. rubella immune
[2019-01-17 08:30] VITALS: BP 104/66; PULSE 105; RESP 20; TEMP 37.3; O2SAT 97
[2019-01-17 12:09] VITALS: BP 100/63; PULSE 98; RESP 16; TEMP 36.7; O2SAT 96
[2019-01-17 15:30] VITALS: BP 98/59; PULSE 100; TEMP 36.5; O2SAT 97
[2019-01-17 20:25] VITALS: BP 107/69; PULSE 94; RESP 18; TEMP 36.4; O2SAT 98
[2019-01-18] VITALS: BP 110/68; PULSE 90; RESP 18; TEMP 36.6; O2SAT 98
[2019-01-18] MEDS: Naproxen 250 MG Tablet 500 MG PO (00:18)
[2019-01-18 08:04] VITALS: BP 109/64; PULSE 88; RESP 16; TEMP 36.6
--- NOTE | 2019-01-18 09:07 | DCINST_ITS ---
Discharge Diet: No Restrictions Discharge Activity: Return to Normal Activity, May not drive while taking narcotic pain medications., May Shower May resume sexual activity in: 4-6 weeks Call your doctor if your incision/area has: Continuous Slow Oozing, Sudden Increased Bleeding, Increased Pain/ Swelling, Increased Redness, Foul Smelling Discharge Additional Instructions: If you experience any of the following, contact your healthcare provider. * Bleeding that soaks a pad every hour for 2 hours * Fever 100.4 or higher * Unrelieved incision or abdominal pain * Swelling, redness, discharge or bleeding from your incision or episiotomy site * Your incision begins to separate * Problems urinating (including inability to urinate or burning while urinating). * Visual changes * Severe headache * Flu-like symptoms * Pain or redness in one of both of your breasts * Pain, warmth, tenderness or swelling in your legs, especially the calf area * Frequent nausea and vomiting * Symptoms of depression or anxiety If you experience any of the following, call 911 or go to the nearest Emergency Room. * Chest pain * Problems breathing * Seizure activity * Partial or complete paralysis of a body part, slurred speech, weakness or drooping of the face, or a sudden inability to walk or hold your balance Allergies/Adverse Reactions: Allergies No Known Allergies Allergy (Verified 01/12/19 07:47) Medications to take at Discharge vitamin#30 30 mg iron-10 mg iron-folic acid 1 mg-omg3 capsule 1 cap PO QHS cap 06/20/18 Please Follow Up With: Clarisse Hyde MD - [phone] When: Call to make an appointment with your doctor in 6 weeks. If you had elevated Blood pressure or 4th degree laceration you will need to be seen in 2 weeks. Primary Care Physician: Care Physician,No Primary [Primary Care Provider] - Test Results: Test results from this visit will be discussed in further detail at your follow- up appointment, if applicable.
--- NOTE | 2019-01-18 09:07 | PCM.PN.OB ---
Subjective: doing well no complaints pain controlled no CP SOB N V ambulating well tolerating po lochia moderate, going well - Physical Exam General: Alert, Oriented x3 Vital Signs Temp Pulse Resp BP Pulse Ox 97.9 F 90 18 110/68 98 01/18/19 00:00 01/18/19 00:00 01/18/19 00:00 01/18/19 00:00 01/18/19 00:00 Oxygen Delivery Method Room Air Weight: 154 lb Body Mass Index (BMI) 27.3 Intake and Output for Last 24 Hours 01/16/19 01/17/19 01/18/19 23:59 23:59 23:59 Intake Total 2736.96 / 2736.96 500 / 500 Output Total 700 / 700 850 / 850 Balance 6.96 / 2036.96 -350 / -350 Medical Necessity - Tobacco Use Smoking Status: Never smoker Assessment/Plan All Active Problems (Last Reviewed 01/09/19 @ 14:52 by Vannesa Covington) SROM (spontaneous rupture of membranes) (Acute) Anemia affecting (Acute) Abnormal glucose affecting (Acute) (Acute) Supervision of normal (Acute) s/p PPD # 2 1. routine post delivery care 2. breast feeding- support given 3. rh positive 4. rubella immune
--- NOTE | 2019-01-18 09:07 | PCM.DCVAG ---
Discharge Diet: No Restrictions Discharge Activity: Return to Normal Activity, May not drive while taking narcotic pain medications., May Shower May resume sexual activity in: 4-6 weeks Call your doctor if your incision/area has: Continuous Slow Oozing, Sudden Increased Bleeding, Increased Pain/ Swelling, Increased Redness, Foul Smelling Discharge Additional Instructions: If you experience any of the following, contact your healthcare provider. Bleeding that soaks a pad every hour for 2 hours Fever 100.4 or higher Unrelieved incision or abdominal pain Swelling, redness, discharge or bleeding from your incision or episiotomy site Your incision begins to separate Problems urinating (including inability to urinate or burning while urinating). Visual changes Severe headache Flu-like symptoms Pain or redness in one of both of your breasts Pain, warmth, tenderness or swelling in your legs, especially the calf area Frequent nausea and vomiting Symptoms of depression or anxiety If you experience any of the following, call 911 or go to the nearest Emergency Room. Chest pain Problems breathing Seizure activity Partial or complete paralysis of a body part, slurred speech, weakness or drooping of the face, or a sudden inability to walk or hold your balance Allergies/Adverse Reactions: Allergies No Known Allergies Allergy (Verified 01/12/19 07:47) Medications to take at Discharge vitamin#30 30 mg iron-10 mg iron-folic acid 1 mg-omg3 capsule 1 cap PO QHS cap 06/20/18 Please Follow Up With: Clarisse Hyde MD - [phone] When: Call to make an appointment with your doctor in 6 weeks. If you had elevated Blood pressure or 4th degree laceration you will need to be seen in 2 weeks. Primary Care Physician: Care Physician,No Primary [Primary Care Provider] - Test Results: Test results from this visit will be discussed in further detail at your follow-up appointment, if applicable.
== END 2019-01-18 11:50 | disposition home or self-care (01) | DRG 807 ==
LOC: WPOUT 10:32 → WP 10:32
PROVIDERS: Admitting Provider Obstetrics & Gynecology; Referring Provider Obstetrics & Gynecology; Visit Provider Obstetrics & Gynecology
DX: O70.0 First degree perineal laceration during delivery (principal); Z37.0 Single live birth; O69.81X0 Labor and delivery complicated by cord around neck, without compression, not applicable or unspecified; O36.5930 Maternal care for other known or suspected poor fetal growth, third trimester, not applicable or unspecified; Z3A.39 39 weeks gestation of pregnancy
CPT/HCPCS: 59025; 59050; 84112; 85025; 86850; 86900; 86901; 99218; J7030; J7120; G0378